=== PATIENT | female | born 1965 | race Caucasian/White ===

== ENCOUNTER 2018-07-09 05:45 | Inpatient (IN) | payer OTHER ==
[~2018-07-09 05:45] MED LIST: Buffered Lidocaine 0.9% SYRIN* 5 ML/SYR SYRINGE INTRADERM ONE
[2018-07-09] MEDS ORDERED: Famotidine IV* 10 MG/ML 2 ML (20 mg) IV ONE (06:00)
[2018-07-09] MEDS ORDERED: Famotidine IV* 10 MG/ML 2 ML (20 mg) ONE (06:04)
[2018-07-09] MEDS ORDERED: ceFAZolin 2 GM PREMIX in ORs 2 GM/50 ML BAG IVPB ONE (06:04)
[2018-07-09] MEDS ORDERED: Rocuronium* 10 MG/ML VIAL ONE (07:08)
[2018-07-09] MEDS ORDERED: fentaNYL* 50 MCG/ML 5 ML VIAL (250 MCG VIAL) ONE (07:08)
[2018-07-09] MEDS ORDERED: Midazolam* 1 MG/ML 2 ML VIAL (2 MG) ONE (07:08)
[2018-07-09] MEDS ORDERED: HYDROmorphone INJ1* 1 MG/ML SYRINGE ONE ×2 (08:18→08:33)
[2018-07-09] MEDS ORDERED: Lidocaine 2% PF * 5 ML VIAL ONE (08:43)
[2018-07-09] MEDS ORDERED: Succinylcholine* 20 MG/ML 10 ML VIAL ONE (08:43)
[2018-07-09] MEDS ORDERED: Propofol* 10 MG/ML 20 ML BTL IV PUSH ONE (08:43)
[2018-07-09] MEDS ORDERED: Metoclopramide IV* 5 MG/ML 2 ML VIAL ONE (08:47)
[2018-07-09] MEDS ORDERED: Acetaminophen IV 1GM/100ML * 1,000 MG/100 ML VIAL IVPB ONE (08:50)
[2018-07-09] MEDS ORDERED: HYDROmorphone INJ1* 1 MG/ML SYRINGE IV PRN (08:50)
[2018-07-09] MEDS ORDERED: oxyCODONE TAB* 5 MG TAB PO PRN (08:50)
[2018-07-09] MEDS ORDERED: DiMENhydriNATE IV* 50 MG/ML VIAL IV PUSH PRN (08:50)
[2018-07-09] MEDS ORDERED: Naloxone* 0.4 MG/ML 1 ML VIAL IV PRN (08:50)
[2018-07-09] MEDS ORDERED: PROCHLORPERAZINE INJ 5 MG/ML 2 ML VIAL IV PRN (08:50)
[2018-07-09] MEDS ORDERED: fentaNYL* 50 MCG/ML 2 ML VIAL (100 MCG VIAL) IV PRN (08:50)
[2018-07-09] MEDS ORDERED: Ketorolac INJ* 30 MG/ML 1 ML VIAL IV PRN (08:50)
[2018-07-09] MEDS ORDERED: Bupivacaine 0.5% W/EPI SDV* 30 ML VIAL ONE (09:07)
[2018-07-09] MEDS ORDERED: Ondansetron INJ* 2 MG/ML VIAL ONE (10:43)
[2018-07-09] MEDS ORDERED: Ketorolac INJ* 30 MG/ML 1 ML VIAL ONE (11:02)
[2018-07-09] MEDS ORDERED: Acetaminophen IV 1GM/100ML * 100 ML ONE (11:02)
[2018-07-09] MEDS ORDERED: Ondansetron ODT TAB* 4 MG PO PRN (11:05)
[2018-07-09] MEDS ORDERED: diPHENhydraMINE PO* 25 MG PO PRN (11:05)
[2018-07-09] MEDS ORDERED: Bisacodyl SUPP* 10 MG SUPP PR PRN (11:05)
[2018-07-09] MEDS ORDERED: Polyethylene Glycol 3350* 17 GM PACKET PO PRN (11:05)
[2018-07-09] MEDS ORDERED: oxyCODONE/Acetamin 5/325 MG* TAB PO PRN (11:05)
[2018-07-09] MEDS ORDERED: Morphine VIAL* 4 MG/ML VIAL (1 ml vial) IV PRN (11:05)
[2018-07-09] MEDS ORDERED: Magnesium Hydroxide LIQ* 30 ML UDC PO PRN (11:05)
[2018-07-09] MEDS ORDERED: diPHENhydraMINE IV* 50 MG/ML 1 ml VIAL (BENADRYL) IV PRN (11:05)
[2018-07-09] MEDS ORDERED: Cyclobenzaprine TAB* 10 MG PO PRN (11:05)
[2018-07-09] MEDS ORDERED: Ondansetron INJ* 2 MG/ML VIAL IV PRN (11:05)
[2018-07-09] MEDS ORDERED: oxyCODONE TAB* 5 MG TAB ONE (11:43)
[2018-07-09] MEDS ORDERED: Dextrose 50% Syringe 50 ML* 25 GM/50 ML SYRINGE IV PUSH PRN (14:11)
[2018-07-09] MEDS: traMADol TAB* 50 MG PO PRN ×2 (15:02→23:35)
[2018-07-09] MEDS: ceFAZolin 1 GM ADVAN(*) 1 GM in NS 0.9% 50 ML* 50 ML IVPB SCH ×2 (15:10→23:32)
[2018-07-09] MEDS: oxyCODONE TAB* 5 MG TAB PO PRN (17:44)
[2018-07-09] MEDS: Insulin LISPRO* 1 UNITS UNIT SUBCUT SCH (17:44)
--- NOTE | 2018-07-09 19:59 | CONS ---
CC: ALAN Hodgson; Dr. Carlisle * CONSULTATION REPORT: DATE OF CONSULT: 07/09/18 PRIMARY CARE PROVIDER: ALAN Hodgson, from [place]. ATTENDING PHYSICIAN WHILE IN THE HOSPITAL: Kemi Arriola DO (report dictated by Adrian Fields NP). REASON FOR MEDICAL CONSULT: Evaluation and medical management of comorbid medical conditions. HISTORY OF PRESENT ILLNESS: Ms. Fritz is a 52-year-old female patient, who carries a history of CAD, hypertension, hyperlipidemia, GERD, peptic ulcer disease, history of OH, history of diabetes, osteoarthritis, and hypothyroidism. She presented to Dr. Carlisle's service with complaints of left knee pain. She had failed conservative therapy and had undergone a left total knee replacement today. The patient was evaluated in the postoperative setting. She says that she is feeling well. She does have some pain in her left knee. She denies having any chest pain. Denies having any shortness of breath. She denies any abdominal pain or any nausea. She states that otherwise , she is feeling well. She denies having any abdominal discomfort or any nausea. Because of her medical complexity, we were asked to evaluate in consult. PAST MEDICAL HISTORY: Significant for: 1. CAD. 2. Hypertension. 3. Hyperlipidemia. 4. GERD. 5. Peptic ulcer disease. 6. History of OH. 7. Diabetes. 8. Arthritis. 9. Hypothyroidism. PAST SURGICAL HISTORY: She has had a left total knee arthroplasty done today. She has had a total abdominal hysterectomy with bilateral salpingo- oophorectomy. She has had heart catheterization with no stent. HOME MEDICATIONS: Include: 1. Calcium carbonate 1 tablet p.o. daily. 2. Metformin 500 mg p.o. twice a day. 3. Vitamin E 400 units p.o. daily. 4. Vitamin B 1 tablet p.o. at bedtime. 5. Plavix 75 mg p.o. daily. 6. Vitamin D3 2000 units p.o. daily. 7. Diltiazem CD 120 mg p.o. b.i.d. 8. Aspirin 81 mg daily. 9. Zocor 20 mg p.o. daily. 10. Synthroid 75 mcg p.o. daily. 11. Advil 200 mg every 4 hours as needed. 12. Nitro 0.4 mg sublingual q.5 minutes p.r.n. chest pain. ALLERGIES TO MEDICATIONS: Include TAPE, AMLODIPINE, LATEX, LISINOPRIL, METRONIDAZOLE, NIACIN. FAMILY HISTORY: Her mother had high blood pressure and a stroke. Father had a history of diabetes, hypertension, and cancer. SOCIAL HISTORY: She does not smoke. She does not drink. Surrogate decision maker is her . REVIEW OF SYSTEMS: There is no documented fever. She denies having any significant weight change. There is no double vision. She denies having any ear discharge. There is no rhinorrhea, no sore throat, no thyroid enlargement. She denied having any chest pain. There is no orthopnea. There is no nocturnal dyspnea. There was no abdominal pain, no nausea, no vomiting. No dysuria, no frequency. No seizure, no loss of consciousness. No pruritus and no skin ulcerations. Review of 14 systems was completed, all others negative. PHYSICAL EXAM: Blood pressure was noted to be 122/52 with a pulse of 69, respirations 18, O2 sat 99%, temperature 98.2. General: At this time, Ms. Fritz is a 52-year-old female patient. She is sitting in the postoperative bed. She does not appear to be in any acute distress. She appears to be well nourished and well developed. HEENT: Head: Atraumatic and normocephalic. Eyes : EOMs are intact. Sclerae anicteric and not pale. Throat: Oral mucosa appears to be moist. No oropharyngeal erythema. Neck was supple. Heart: Sounds S1, S2. She had a regular rate and rhythm. There were no murmurs, rubs , or gallops. Lungs were clear to auscultation bilaterally. There were no wheezes, rales, or rhonchi. Abdomen was soft. It was flat, nontender. Bowel sounds were present in all 4 quadrants. Extremities: Pulses were 2+ throughout. She is moving the upper extremities with 5/5 strength. The left lower extremity is wrapped in Daryl bandage, but distal CSM checks are intact. This is the operative leg, so she has difficult range of motion of this leg. Neurologically, she is awake, she is alert, she is oriented x3. Her tongue is midline. Biostatistician were equal. She had no gross focal deficits. Skin: Intact with exception she has an incision to the left knee, which is covered with an Daryl dressing, clean, dry, and intact. DIAGNOSTIC STUDIES/LAB DATA: Preop WBC of 8.6, RBC of 4.85, hemoglobin of 14.9 , hematocrit of 42, platelet count of 207,000. The INR was 0.90. The sodium was 141, potassium 4.2, chloride of 105, bicarb 30, BUN 17, creatinine of 0.96, glucose was 98. She had a preop chest x-ray: No active cardiopulmonary disease. She had a cath 3 years ago, which showed mild atherosclerotic coronary artery disease with changes as noted from 2000. Coronary artery spasm should be a major consideration in this patient. She had an EKG preop showing a normal sinus rhythm, rate of [address] elevations or T-wave inversions noted. She had an echo in March, which showed an EF of 55%. Old medical records were reviewed. ASSESSMENT AND PLAN: Ms. Fritz is a 52-year-old female patient coming into the orthopedic service today for an elective left total knee. We were asked to evaluate in consult. My recommendations at this point are: 1. Status post left total knee. Defer the management to Dr. Carlisle and his team. 2. Coronary artery disease. I would recommend getting her back on her statin, aspirin therapy and her Plavix therapy. She is also on diltiazem. Given the history of coronary artery spasm, I would get this started as soon as possible pressure permitting, which it looks like postoperatively actually her pressures have been running 150, 140s, so I am going to go ahead and continue this tonight as she takes at home. 3. Hypertension. Continue meds as prescribed. 4. Hyperlipidemia. Continue statin therapy. 5. Gastroesophageal reflux disease with a history of peptic ulcer disease. Continue her current meds. 6. Diabetes. Again, she is on a low dose metformin, but I am going to put her on a sliding scale while she is here recovering. 7. Arthritis. Follow with her PCP. 8. Hypothyroidism. Continue her Synthroid. 9. DVT prophylaxis: Defer to the primary team. 10. Code status: She is a full code. 11. Fluids, electrolytes, and nutrition: I would recommend a consistent carb diet. TIME SPENT: Time spent on the consult was 60 minutes, greater than half the time was spent [id number] with the patient obtaining my history and physical, other half time was spent going over the plan of care with the patient and implementing plan of care. I did discuss the plan of care with my attending, Dr. Arriola; she is in agreement. ADRIAN FIELDS NP [id number]/[facility] #: [id number] MAE
[2018-07-09] MEDS ORDERED: metFORMIN* 500 MG TAB PO SCH (21:00)
[2018-07-09] MEDS: Magnesium Hydroxide LIQ* 30 ML UDC PO SCH (21:04)
[2018-07-09] MEDS: Acetaminophen TAB* 325 MG PO SCH (21:05)
[2018-07-09] MEDS: Atorvastatin* 10 MG TAB PO SCH (21:05)
[2018-07-09] MEDS: Docusate CAP* 100 MG PO SCH (21:05)
[2018-07-09] MEDS: Aspirin EC TAB* 81 MG TAB.EC PO SCH (21:05)
[2018-07-09] MEDS: [UNRECOGNIZED DRUG - OTHER] PO SCH (21:06)
[2018-07-09] MEDS: DILTIAZEM PO SCH (21:06)
--- NOTE | 2018-07-10 01:57 | OP ---
DATE OF OPERATION: 07/09/18 - ROOM #347 DATE OF : 65 SURGEON: Ever Carlisle MD ASSISTANTS: ALAN Gordon; Andressa Taylor. A physician melter assistant was required for the length of the procedure for assistance with the patient positioning, retraction and closure. ANESTHESIOLOGIST: Dr. Bell. ANESTHESIA: General anesthesia, 38 cc of 0.5% Marcaine with epinephrine. PRE-OP DIAGNOSIS: Left knee osteoarthritis and pain. POST-OP DIAGNOSIS: Left knee osteoarthritis and pain. OPERATIVE PROCEDURE: Left total knee arthroplasty. ANTIBIOTICS: Ancef 2 g IV. IV FLUIDS: 1100 cc crystalloid. URINE OUTPUT: Not recorded by me. ESTIMATED BLOOD LOSS: 150 cc. TOURNIQUET TIME: 120 minutes at 300 mmHg. UMAH-MH-WWXD TIME: 133 minutes. SPECIMEN: Bone cuts from the surgery were sent to pathology. IMPLANTS: Interview[employer] total knee arthroplasty system with a femur size 4 narrow, cruciate retaining, cemented. Tibia size 3 cemented, fixed bearing, patella, medialized dome, 32 mm cemented. A tibial insert was size 6 mm. I also used Redd Palacos cement. COMPLICATIONS: None. INDICATIONS FOR PROCEDURE: The patient is a 52-year-old woman with a long history of pain and osteoarthritis of the left knee. She responded insufficiently to nonoperative management and opted for surgery. Given the patient's young age and cardiac history, I was very detailed in making sure the patient understood the risks of surgery and I made sure that we had exhausted all nonoperative measures. We discussed risks and potential complications of surgery. DESCRIPTION OF PROCEDURE: The patient signed a written consent in preoperative holding. Operative extremity was marked in preoperative holding. The patient was taken back to the operating room and placed supine on the operating table. It should be noted that the patient stopped her aspirin 7 days preoperatively and her Plavix 5 days preoperatively. The patient underwent general anesthesia. Tourniquet was placed around the left proximal thigh. A lateral post was placed on the bed about the level of the lateral aspect of the distal thigh. The left leg was prepped with chlorhexidine and then ChloraPrep. Left lower extremity was draped. The [facility] knee positioner was put into place. I used Ioban to complete the draping covering all skin. A surgical time-out was performed. Esmarch was applied and the tourniquet was elevated to 300 mmHg. Anterior midline longitudinal skin incision from 4 fingerbreadths proximal to the proximal pole of patella to the end of the distal aspect of the tibial tubercle. I exchanged knives and dissected down to the extensor mechanism. I made a medial parapatellar arthrotomy. I encountered tricompartmental degenerative changes with significant loss of articular cartilage and osteophytes. I completed my cut down through the anterior horn of the medial meniscus. I fully extended the knee and lifted the capsule off the anterior aspect of the knee with Bovie electrocautery. I removed much of the sac from the undersurface of the patellar tendon and everted the patella and flexed the knee up to 90 degrees. I removed the ACL ligament. I removed some osteophytes with a rongeur. I drilled the femur and then placed the distal femoral cutting guide. I removed 9 mm at 5 degrees of valgus. I next applied the distal femoral sizing guide. I sized the distal femur to a 4. I made my 4 bone cuts. I removed all instrumentation. I moved to the tibia. I marked external anatomy. The medial side was the low, more worn side. I made a cut with 7 degrees of posterior slope. I removed 3 mm off the low side, which was approximately 12 mm off the high side. I liked my bone cut. The bone cut was on the small side, but there seemed enough gap within the knee. I placed lamina spreaders and removed all meniscus. I removed some posterior femoral osteophytes. Irrigation. I placed a dog-bone bone spacer of 6 mm thickness. Flexion/extension gaps were equal. I placed the femoral trial and drilled the femur. Before that, I had rasped the anterior chamfer cut. I next sized the tibia to a size 3. I prepared the tibia. I next moved to the patella. It was first 22 mm in deep. I removed enough bone using freehand technique so that it was 13 mm in depth. I sized it to a size 32 and drilled it. I irrigated knee. I plugged femoral canal. I mixed cement for 45 seconds, Redd Palacos. I changed gloves. Applied cement and components, first tibia, then femur. I placed a trial 6 mm insert and then I placed the patellar component. We waited for the cement to harden. We then irrigated. There was no extra cement. We next trialed the knee with a 6 mm trial. The patient had excellent range of motion, 0 to at least 110 degrees of flexion, with flexion limited by thigh-calf contact. Excellent valgus varus stability. We next irrigated and placed the final 6 mm insert. Irrigation. Closure of the arthrotomy with Ethibond 0, then Vicryl 0. Stitches, [id number]. It was with the knee in 30 degrees of flexion. We then irrigated and closed the deep subcutaneous and superficial subcutaneous layers with Vicryl 2-0 suture buried deep stitches. Closure of the skin with vinnie. We had let the tourniquet up at 120 minutes while we were at the final stage of closing. We had applied 38 cc of local anesthetic about the joint capsule prior to closure. Xeroform, 4x4's, ABD's, sterile Webril. Daryl bandage from foot to proximal thigh. Cooling unit. DISPOSITION: The patient was awakened and brought to the PACU. She will be admitted postoperatively. The patient will have x-rays obtained in the PACU. She will start physical therapy this afternoon. She will have IV antibiotics for 48 hours rather than 24 hours because she is a diabetic and is obese, so is at increased risk of infection. Pain control. Her Plavix and aspirin will start tomorrow morning as will her Eliquis 2.5 mg p.o. b.i.d. x4 weeks. I will see the patient 14 to 17 days postoperatively in clinic. [id number]/[facility] #: [id number] MAE
[2018-07-10] MEDS: Acetaminophen TAB* 325 MG PO SCH ×3 (04:05→19:32)
[2018-07-10] MEDS: oxyCODONE TAB* 5 MG TAB PO PRN ×5 (04:08→23:53)
[2018-07-10] MEDS: Levothyroxine TAB* 75 MCG TAB PO SCH (06:13)
[2018-07-10 06:31] LABS: Hematocrit 32 % (35-47); Mean Platelet Volume 9.3 fL (7.4-10.4); Platelet Count 158 10^3/ul (150-450)
[2018-07-10 06:49] LABS: EGFR Non-African American 72.2 (>60)
[2018-07-10] MEDS: Insulin LISPRO* 1 UNITS UNIT SUBCUT SCH ×3 (08:13→17:52)
[2018-07-10] MEDS: ceFAZolin 1 GM ADVAN(*) 1 GM in NS 0.9% 50 ML* 50 ML IVPB SCH ×3 (08:13→23:54)
[2018-07-10] MEDS: Clopidogrel TAB* 75 MG PO SCH (09:50)
[2018-07-10] MEDS: Apixaban* 2.5 MG TAB PO SCH ×2 (09:50→19:33)
[2018-07-10] MEDS: traMADol TAB* 50 MG PO PRN ×3 (09:50→22:22)
[2018-07-10] MEDS: Docusate CAP* 100 MG PO SCH ×2 (09:50→19:42)
[2018-07-10] MEDS: Magnesium Hydroxide LIQ* 30 ML UDC PO SCH ×2 (09:51→19:42)
[2018-07-10] MEDS: DILTIAZEM PO SCH (10:02)
[2018-07-10] MEDS: [UNRECOGNIZED DRUG - OTHER] PO SCH (10:02)
--- NOTE | 2018-07-10 12:22 | PN ---
Progress Note - Progress Note Date of Service: 07/10/18 SOAP: Subjective: []Patient was seen and examined OOB in chair today. Her left knee pain is tolerable and she has been up to walk to the bathroom with assistance without difficulty. She denies any chest pain, shortness of breath, fever, chills, nausea, dizziness or leg numbness. Objective: []General: Well appearing, NAD LLE: Left knee dressing is CDI without surrounding erythema. Cryo cuff is in use. Thigh is soft, DF/PF intact, Dp2+, capillary refill less than two seconds distally, sensation intact to light touch distally. Calves supple and nontender without erythema, edema or palpable cords Assessment: []POD 1 sp left total knee arthroplasty Plan: []WBAT PT/OT Eliquis 2.5 mg po bid for 4 weeks, also home dose of asa and plavix all okay to start today 48 hours IV abx post op due to increased risk of infection with hx dm2 and obesity F/U Dr Carlisle 14-17 days post op Encourage IS use, monitor O2 and HR Vital Signs Temp 98.6 F 07/10/18 11:33 Pulse 102 07/10/18 11:33 Resp 16 07/10/18 11:33 BP 126/67 07/10/18 11:33 Pulse Ox 92 07/10/18 11:33 Intake & Output 07/09/18 07/10/18 07/10/18 18:59 06:59 18:59 Intake Total 1300 1620 240 Output Total 525 950 100 Balance 775 670 140 Intake: IV Fluids 1300 980 LR 1300 980 IVPB 50 ABX - CEFAZOLIN 50 Oral 0 590 240 Output: Urine 100 [place] 375 950 Estimated Blood Loss 150 Laboratory Last Values Hgb 11.0 g/dl (12.0-16.0) L 07/10/18 06:14 Hct 32 % (35-47) L 07/10/18 06:14 Plt Count 158 10^3/ul (150-450) 07/10/18 06:14 MPV 9.3 fL (7.4-10.4) 07/10/18 06:14 Sodium 140 mmol/L (135-145) 07/10/18 06:14 Potassium 3.7 mmol/L (3.5-5.0) 07/10/18 06:14 Chloride 105 mmol/L (101-111) 07/10/18 06:14 Carbon Dioxide 30 mmol/L (22-32) 07/10/18 06:14 Anion Gap 5 mmol/L (2-11) 07/10/18 06:14 BUN 12 mg/dL (6-24) 07/10/18 06:14 Creatinine 0.83 mg/dL (0.51-0.95) 07/10/18 06:14 Est GFR ( Amer) 87.4 (>60) 07/10/18 06:14 Est GFR (Non-Af Amer) 72.2 (>60) 07/10/18 06:14 BUN/Creatinine Ratio 14.5 (8-20) 07/10/18 06:14 Glucose 124 mg/dL (70-100) H 07/10/18 06:14 POC Glucose (mg/dL) 191 mg/dL (70-100) H 07/10/18 11:39 Calcium 7.9 mg/dL (8.6-10.3) L 07/10/18 06:14 <Lisa Minaya - Last Filed: 07/10/18 12:23> - Progress Note SOAP: Subjective: - Patient has been somewhat sad according to her family and staff. Objective: LLE: - inc c/d/i - NVID Assessment: POD 2 L TKA Plan: - Per above <Ever Carlisle - Last Filed: 07/11/18 21:05>
--- NOTE | 2018-07-10 13:41 | PN ---
Subjective Date of Service: 07/10/18 Interval History: Pt seen and examined. Meds and labs reviewed. CC: 06/11 post- op pain; mentioned she received some pain meds ~1 hr ago. ROS: Denied LEWIS/dizziness, F/C, N/V, CP, SOB, increased cough, sputum production , abd pain, diarrhea, constipation, dysuria, myalgias, arthralgias, throat pain , and new skin lesions. The rest of the 14 point ROS are unremarkable. PHYSICAL EXAM: GEN APPEARANCE: Awake, not in acute distress HEENT: NC/AT, PERRLA, moist oral mucosa, (-) throat erythema NECK: Soft, supple, (-) cervical LAD, (-)JVD HEART: S1S2 WNL, RRR, No MRG CHEST: CTA, BL, GAE, No W/R/R ABD: Soft, ND/NT, NABS 4x Q EXT: No C/C/LLE (+) knee cdi SKIN: Warm to touch PSYCH: No active psychosis, hallucinations, depression, SI/HI Objective Active Medications: Acetaminophen (Tylenol Tab*) 975 mg PO Q8H [facility] Last Admin: 07/10/18 11:39 Dose: 975 mg Apixaban (Eliquis) 2.5 mg PO BID [facility] Last Admin: 07/10/18 09:50 Dose: 2.5 mg Aspirin (Aspirin Ec Tab*) 81 mg PO 1999 [facility] Last Admin: 07/09/18 21:05 Dose: 81 mg Atorvastatin Calcium (Lipitor*) 10 mg PO 1999 [facility] Last Admin: 07/09/18 21:05 Dose: 10 mg Bisacodyl (Dulcolax Supp*) 10 mg AR DAILY PRN PRN Reason: constipation Clopidogrel Bisulfate (Plavix Tab*) 75 mg PO QAM [facility] Last Admin: 07/10/18 09:50 Dose: 75 mg Cyclobenzaprine HCl (Flexeril Tab*) 10 mg PO TID PRN PRN Reason: SPASMS Dextrose (D50w Syringe 50 Ml*) 12.5 gm IV PUSH .FOR FS < 60 - SS PRN PRN Reason: FS < 60 Diltiazem HCl (Tiazac(Nf)) 120 mg PO BID [facility] Last Admin: 07/10/18 10:02 Dose: Not Given Diphenhydramine HCl (Benadryl Iv*) 25 mg IV Q6H PRN PRN Reason: itching Diphenhydramine HCl (Benadryl Po*) 25 mg PO Q6H PRN PRN Reason: INSOMNIA Docusate Sodium (Colace Cap*) 100 mg PO BID [facility] Last Admin: 07/10/18 09:50 Dose: 100 mg Lactated Ringer's (Lactated Ringers 1000 Ml Bag*) 1,000 mls @ 100 mls/hr IV PER RATE [facility] Last Admin: 07/09/18 22:09 Dose: 100 mls/hr Cefazolin Sodium 1 gm/ Sodium (Chloride) 50 mls @ 200 mls/hr IVPB Q8H [facility] Last Admin: 07/10/18 08:13 Dose: 200 mls/hr Insulin Human Lispro (Humalog*) 0 units SUBCUT [facility]; Protocol Last Admin: 07/10/18 12:46 Dose: 3 units Lactulose (Lactulose*) 30 ml PO Q6H PRN PRN Reason: constipation Levothyroxine Sodium (Synthroid Tab*) 75 mcg PO 0600 [facility] Last Admin: 07/10/18 06:13 Dose: 75 mcg Magnesium Hydroxide (Milk Of Magnesia Liq*) 30 ml PO BID [facility] Last Admin: 07/10/18 09:51 Dose: 30 ml Magnesium Hydroxide (Milk Of Magnesia Liq*) 30 ml PO Q6H PRN PRN Reason: constipation Morphine Sulfate (Morphine Vial*) 2 mg IV Q2H PRN PRN Reason: PAIN - SEVERE Ondansetron HCl (Zofran Inj*) 4 mg IV Q6H PRN PRN Reason: nausea Ondansetron HCl (Zofran Odt Tab*) 4 mg PO Q6H PRN PRN Reason: NAUSEA Oxycodone HCl (Roxycodone Tab*) 10 mg PO Q4H PRN PRN Reason: moderate to severe pain Last Admin: 07/10/18 12:46 Dose: 10 mg Oxycodone/Acetaminophen (Percocet 5/325 Tab*) 1 tab PO Q3H PRN PRN Reason: PAIN - MODERATE Polyethylene Glycol/Electrolytes (Miralax*) 17 gm PO DAILY PRN PRN Reason: Constipation Tramadol HCl (Ultram*) 50 mg PO Q6H PRN PRN Reason: PAIN Last Admin: 07/10/18 09:50 Dose: 50 mg Vital Signs - 8 hr 07/10/18 07/10/18 07/10/18 06:38 07:44 08:00 Temperature 98.4 F Pulse Rate 93 Respiratory 18 14 14 Rate Blood Pressure 107/44 (mmHg) O2 Sat by Pulse 94 Oximetry 07/10/18 07/10/18 07/10/18 08:13 09:50 11:33 Temperature 98.6 F Pulse Rate 102 Respiratory 14 16 16 Rate Blood Pressure 126/67 (mmHg) O2 Sat by Pulse 92 Oximetry 07/10/18 12:46 Temperature Pulse Rate Respiratory 16 Rate Blood Pressure (mmHg) O2 Sat by Pulse Oximetry Oxygen Devices in Use Now: None Result Diagrams: 07/10/18 06:14 07/10/18 06:14 Assess/Plan/Problems-Billing Assessment: - Patient Problems (1) Total knee replacement status Current Visit: Yes Status: Acute Code(s): Z96.659 - PRESENCE OF UNSPECIFIED ARTIFICIAL KNEE JOINT SNOMED Code(s): 1596325183288 Comment: #S/P TKR: -POD #1 -Encouraged pt to ask for PRN pain meds as she has plenty if she feels she needs more pain meds to be comfortable -Continue PT/OT -Defer with ortho (2) CAD (coronary artery disease) Current Visit: Yes Status: Acute Code(s): I25.10 - ATHSCL HEART DISEASE OF [place] CORONARY ARTERY W/O ANG PCTRS SNOMED Code(s): 70237466 Comment: -Continue DAPT, statins, and Diltiazem (3) Hypothyroidism Current Visit: Yes Status: Acute Code(s): E03.9 - HYPOTHYROIDISM, UNSPECIFIED SNOMED Code(s): 18682816 Comment: -Continue Levothyroxine -Will check TSH and FT4 in AM (4) DVT prophylaxis Current Visit: Yes Status: Acute Code(s): HLO7186 - SNOMED Code(s): 254010403 Comment: -On Apixaban Status and Disposition: -Defer with ortho
[2018-07-10] MEDS: Aspirin EC TAB* 81 MG TAB.EC PO SCH (19:32)
[2018-07-10] MEDS: Atorvastatin* 10 MG TAB PO SCH (19:32)
[2018-07-10] MEDS: Diltiazem CD CAP* 120 MG PO SCH (19:33)
[2018-07-10] MEDS ORDERED: Diltiazem CD CAP* 120 MG PO SCH (21:00)
[2018-07-11] MEDS: Acetaminophen TAB* 325 MG PO SCH ×3 (04:07→20:53)
[2018-07-11] MEDS: oxyCODONE TAB* 5 MG TAB PO PRN ×3 (05:41→13:53)
[2018-07-11] MEDS: Levothyroxine TAB* 75 MCG TAB PO SCH (05:41)
[2018-07-11 06:47] LABS: ABS Basophils 0 10^3/ul (0-0.2); ABS Eosinophils 0.3 10^3/ul (0-0.6); ABS Lymphocytes 1.3 10^3/ul (1.0-4.8); ABS Monocytes 0.8 10^3/ul (0-0.8); ABS Neutrophils 8.2 10^3/ul (1.5-7.7); ABS Nucleated RBC 0 10^3/ul; Eosinophil % 3.1 % (0-6); Hematocrit 29 % (35-47); Hemoglobin 10.2 g/dl (12.0-16.0); Lymphocyte % 11.9 % (25-47); Mean Corpuscular HGB Conc 35 g/dl (31-36); Mean Corpuscular Hemoglobin 31 pg (27-31); Mean Corpuscular Volume 90 fL (80-97); Mean Platelet Volume 9.1 fL (7.4-10.4); Nucleated Red Blood Cells % 0; Platelet Count 137 10^3/ul (150-450); Red Blood Count 3.25 10^6/ul (4.00-5.40); Red Cell Distribution Width 13 % (10.5-15); White Blood Count 10.6 10^3/ul (3.5-10.8)
[2018-07-11 07:05] LABS: EGFR Non-African American 74.3 (>60)
[2018-07-11] MEDS: ceFAZolin 1 GM ADVAN(*) 1 GM in NS 0.9% 50 ML* 50 ML IVPB SCH ×2 (07:38→16:20)
[2018-07-11] MEDS: traMADol TAB* 50 MG PO PRN (07:38)
[2018-07-11] MEDS ORDERED: Sodium Phosphate INJ* 10 MMOLE in NS 0.9% 250 ML* 250 ML IVPB ONE (08:50)
[2018-07-11] MEDS: Apixaban* 2.5 MG TAB PO SCH ×2 (08:52→20:53)
[2018-07-11] MEDS: Clopidogrel TAB* 75 MG PO SCH (08:52)
[2018-07-11] MEDS: Diltiazem CD CAP* 120 MG PO SCH ×2 (08:52→20:53)
[2018-07-11] MEDS: Insulin LISPRO* 1 UNITS UNIT SUBCUT SCH ×3 (08:53→17:57)
[2018-07-11] MEDS: Docusate CAP* 100 MG PO SCH ×2 (08:53→20:53)
[2018-07-11] MEDS: Magnesium Hydroxide LIQ* 30 ML UDC PO SCH ×2 (08:56→20:57)
--- NOTE | 2018-07-11 11:09 | PN ---
Progress Note - Progress Note Date of Service: 07/11/18 SOAP: Subjective: []Patient seen at [facility], family present. She is making slow improvement with PT, had difficulty with stairs yesterday but reportedly did master them this am. She still does not feel ready for discharge home. Objective: [] Vital Signs Temp 98.8 F 07/11/18 07:31 Pulse 102 07/11/18 07:31 Resp 16 07/11/18 09:48 BP 104/45 07/11/18 07:31 Pulse Ox 93 07/11/18 07:31 Intake & Output 07/10/18 07/11/18 07/11/18 18:59 06:59 18:59 Intake Total 1431 1170 120 Output Total 700 1000 Balance 731 170 120 Intake: IV Fluids 701 LR 701 IVPB 50 ABX - CEFAZOLIN 50 Oral 730 1120 120 Output: Urine 700 1000 Other: # Bowel Movements 1 Estimated Stool Amount Medium Laboratory Results - last 24 hr 07/10/18 07/10/18 07/11/18 11:39 16:15 06:22 WBC 10.6 RBC 3.25 L Hgb 10.2 L Hct 29 L MCV 90 MCH 31 MCHC 35 RDW 13 Plt Count 137 L MPV 9.1 Neut % (Auto) 77.0 Lymph % (Auto) 11.9 L Motley % (Auto) 7.7 H Eos % (Auto) 3.1 Baso % (Auto) 0.3 Absolute Neuts (auto) 8.2 H Absolute Lymphs (auto) 1.3 Absolute Monos (auto) 0.8 Absolute Eos (auto) 0.3 Absolute Basos (auto) 0 Absolute Nucleated RBC 0 Nucleated RBC % 0 Sodium Potassium Chloride Carbon Dioxide Anion Gap BUN Creatinine Est GFR ( Amer) Est GFR (Non-Af Amer) BUN/Creatinine Ratio Glucose POC Glucose (mg/dL) 191 H 179 H Calcium Phosphorus Magnesium Total Bilirubin AST ALT Alkaline Phosphatase Total Protein Albumin Globulin Albumin/Globulin Ratio TSH Free T4 07/11/18 07/11/18 06:22 07:30 WBC RBC Hgb Hct MCV MCH MCHC RDW Plt Count MPV Neut % (Auto) Lymph % (Auto) Motley % (Auto) Eos % (Auto) Baso % (Auto) Absolute Neuts (auto) Absolute Lymphs (auto) Absolute Monos (auto) Absolute Eos (auto) Absolute Basos (auto) Absolute Nucleated RBC Nucleated RBC % Sodium 137 Potassium 3.9 Chloride 103 Carbon Dioxide 30 Anion Gap 4 BUN 11 Creatinine 0.81 Est GFR ( Amer) 89.8 Est GFR (Non-Af Amer) 74.3 BUN/Creatinine Ratio 13.6 Glucose 154 H POC Glucose (mg/dL) 163 H Calcium 7.8 L Phosphorus 2.4 L Magnesium 2.5 Total Bilirubin 0.50 AST 17 ALT 12 Alkaline Phosphatase 48 Total Protein 5.2 L Albumin 3.0 L Globulin 2.2 Albumin/Globulin Ratio 1.4 TSH 0.73 Free T4 1.90 H Left knee dressings changed incision is benign/ vinnie intact small hematoma noted distal to incision on anterior lower leg calf NT and soft +DF/PF left ankle sensation intact distally 2+ DP pulse Assessment: []s/p Left total knee arthroplasty POD #2 Plan: []PT/OT WBAT LLE Eliquis 2.5mg BID, continue 81 mg ASA and Plavix as per pre op Hopefully with be ready for discharge home tomorrow with outpatient PT
[2018-07-11] MEDS ORDERED: Saline NASAL SPRAY 0.65%* BTL BOTH NARES PRN (12:05)
--- NOTE | 2018-07-11 17:10 | PN ---
Subjective Date of Service: 07/11/18 Interval History: Pt seen and examined. Meds and labs reviewed. CC: Nasal dryness ROS: Denied LEWIS/dizziness, F/C, N/V, CP, SOB, increased cough, sputum production , abd pain, diarrhea, constipation, dysuria, myalgias, arthralgias, throat pain , and new skin lesions. The rest of the 14 point ROS are unremarkable. PHYSICAL EXAM: GEN APPEARANCE: Awake, not in acute distress HEENT: NC/AT, PERRLA, moist oral mucosa, (-) throat erythema NECK: Soft, supple, (-) cervical LAD, (-)JVD HEART: S1S2 WNL, RRR, No MRG CHEST: CTA, BL, GAE, No W/R/R ABD: Soft, ND/NT, NABS 4x Q EXT: No C/C/LLE (+) knee cdi SKIN: Warm to touch PSYCH: No active psychosis, hallucinations, depression, SI/HI Objective Active Medications: Acetaminophen (Tylenol Tab*) 975 mg PO Q8H [facility] Last Admin: 07/11/18 11:38 Dose: 975 mg Apixaban (Eliquis) 2.5 mg PO BID [facility] Last Admin: 07/11/18 08:52 Dose: 2.5 mg Aspirin (Aspirin Ec Tab*) 81 mg PO 1999 [facility] Last Admin: 07/10/18 19:32 Dose: 81 mg Atorvastatin Calcium (Lipitor*) 10 mg PO 1999 [facility] Last Admin: 07/10/18 19:32 Dose: 10 mg Bisacodyl (Dulcolax Supp*) 10 mg CA DAILY PRN PRN Reason: constipation Clopidogrel Bisulfate (Plavix Tab*) 75 mg PO QAM [facility] Last Admin: 07/11/18 08:52 Dose: 75 mg Cyclobenzaprine HCl (Flexeril Tab*) 10 mg PO TID PRN PRN Reason: SPASMS Dextrose (D50w Syringe 50 Ml*) 12.5 gm IV PUSH .FOR FS < 60 - SS PRN PRN Reason: FS < 60 Diltiazem HCl (Cardizem Cd Cap*) 120 mg PO BID [facility] Last Admin: 07/11/18 08:52 Dose: 120 mg Diphenhydramine HCl (Benadryl Iv*) 25 mg IV Q6H PRN PRN Reason: itching Diphenhydramine HCl (Benadryl Po*) 25 mg PO Q6H PRN PRN Reason: INSOMNIA Docusate Sodium (Colace Cap*) 100 mg PO BID [facility] Last Admin: 07/11/18 08:53 Dose: Not Given Lactated Ringer's (Lactated Ringers 1000 Ml Bag*) 1,000 mls @ 100 mls/hr IV PER RATE [facility] Last Admin: 07/09/18 22:09 Dose: 100 mls/hr Cefazolin Sodium 1 gm/ Sodium (Chloride) 50 mls @ 200 mls/hr IVPB Q8H [facility] Last Admin: 07/11/18 07:38 Dose: 200 mls/hr Insulin Human Lispro (Humalog*) 0 units SUBCUT AC [facility]; Protocol Last Admin: 07/11/18 12:39 Dose: 3 units Lactulose (Lactulose*) 30 ml PO Q6H PRN PRN Reason: constipation Levothyroxine Sodium (Synthroid Tab*) 75 mcg PO 0600 [facility] Last Admin: 07/11/18 05:41 Dose: 75 mcg Magnesium Hydroxide (Milk Of Magnesia Liq*) 30 ml PO BID [facility] Last Admin: 07/11/18 08:56 Dose: Not Given Magnesium Hydroxide (Milk Of Magnesia Liq*) 30 ml PO Q6H PRN PRN Reason: constipation Morphine Sulfate (Morphine Vial*) 2 mg IV Q2H PRN PRN Reason: PAIN - SEVERE Ondansetron HCl (Zofran Inj*) 4 mg IV Q6H PRN PRN Reason: nausea Last Admin: 07/11/18 12:39 Dose: 4 mg Ondansetron HCl (Zofran Odt Tab*) 4 mg PO Q6H PRN PRN Reason: NAUSEA Oxycodone HCl (Roxycodone Tab*) 10 mg PO Q4H PRN PRN Reason: moderate to severe pain Last Admin: 07/11/18 13:53 Dose: 10 mg Oxycodone/Acetaminophen (Percocet 5/325 Tab*) 1 tab PO Q3H PRN PRN Reason: PAIN - MODERATE Polyethylene Glycol/Electrolytes (Miralax*) 17 gm PO DAILY PRN PRN Reason: Constipation Sodium Chloride (Sodium Chloride 0.65% Nasal Flushing*) 1 spray BOTH NARES Q4H PRN PRN Reason: nasal dryness Tramadol HCl (Ultram*) 50 mg PO Q6H PRN PRN Reason: PAIN Last Admin: 07/11/18 07:38 Dose: 50 mg Vital Signs - 8 hr 07/11/18 07/11/18 07/11/18 09:48 11:23 13:53 Temperature 98.4 F Pulse Rate 94 Respiratory 16 16 16 Rate Blood Pressure 115/49 (mmHg) O2 Sat by Pulse 92 Oximetry Oxygen Devices in Use Now: None Result Diagrams: 07/11/18 06:22 07/11/18 06:22 Assess/Plan/Problems-Billing Assessment: - Patient Problems (1) Total knee replacement status Current Visit: Yes Status: Acute Code(s): Z96.659 - PRESENCE OF UNSPECIFIED ARTIFICIAL KNEE JOINT SNOMED Code(s): 7388787297095 Comment: #S/P TKR: -POD #2 -Encouraged pt to ask for PRN pain meds as she has plenty if she feels she needs more pain meds to be comfortable -Continue PT/OT -Defer with ortho (2) CAD (coronary artery disease) Current Visit: Yes Status: Acute Code(s): I25.10 - ATHSCL HEART DISEASE OF [place] CORONARY ARTERY W/O ANG PCTRS SNOMED Code(s): 86604669 Comment: -Continue DAPT, statins, and Diltiazem (3) Hypothyroidism Current Visit: Yes Status: Acute Code(s): E03.9 - HYPOTHYROIDISM, UNSPECIFIED SNOMED Code(s): 64331730 Comment: -Continue Levothyroxine -Will check TSH normal ; free T4 only mildly elevated likely due to post-op status -Defer F/U with PCP with repeat TFTs in 6-8 weeks (4) Nasal mucosa dry Current Visit: Yes Status: Acute Code(s): J34.89 - OTHER SPECIFIED DISORDERS OF NOSE AND NASAL SINUSES SNOMED Code(s): 19364020 Comment: -Will place pt on PRN nasal spray (5) DVT prophylaxis Current Visit: Yes Status: Acute Code(s): DAO5790 - SNOMED Code(s): 124878669 Comment: -On Apixaban Status and Disposition: -Defer with ortho
[2018-07-11] MEDS: Atorvastatin* 10 MG TAB PO SCH (20:53)
[2018-07-11] MEDS: Aspirin EC TAB* 81 MG TAB.EC PO SCH (20:53)
[2018-07-12] MEDS: Acetaminophen TAB* 325 MG PO SCH (03:34)
[2018-07-12] MEDS: oxyCODONE TAB* 5 MG TAB PO PRN ×2 (03:37→09:33)
[2018-07-12 05:55] LABS: Hematocrit 28 % (35-47); Hemoglobin 9.4 g/dl (12.0-16.0); Mean Platelet Volume 9.4 fL (7.4-10.4); Platelet Count 150 10^3/ul (150-450)
[2018-07-12] MEDS: Levothyroxine TAB* 75 MCG TAB PO SCH (06:11)
[2018-07-12 07:34] VITALS: BP 114/53
--- NOTE | 2018-07-12 07:46 | PN ---
Progress Note - Progress Note Date of Service: 07/12/18 SOAP: Subjective: POD #3 Left TKA, doing well. Anxious for d/c home today. Pain well controlled. Denies CP/SOB, n/v, f/c or calf pain Objective: Vitals: Temp Pulse Resp BP Pulse Ox 98.5 F 92 18 114/53 89 07/12/18 07:29 07/12/18 07:29 07/12/18 07:29 07/12/18 07:29 07/12/18 07:29 Gen: A&Ox3, NAD at rest laying in bed LLE: Dressing C/D/I. +f/e at ankle and MTPs, N/V intact Labs: Laboratory Results - last 24 hr 18 07/11/18 07/12/18 11:44 17:32 05:21 Hgb 9.4 L Hct 28 L Plt Count 150 MPV 9.4 POC Glucose (mg/dL) 172 H 149 H Phosphorus 07/12/18 05:21 Hgb Hct Plt Count MPV POC Glucose (mg/dL) Phosphorus 2.7 Assessment: POD #3 Left TKA Plan: D/C home today Continue eliquis 2.5mg BID for DVT ppx Continue home exercises F/U with Dr. Carlisle 10-14 days post op
[2018-07-12] MEDS: Clopidogrel TAB* 75 MG PO SCH (09:33)
[2018-07-12] MEDS: Diltiazem CD CAP* 120 MG PO SCH (09:33)
[2018-07-12] MEDS: Apixaban* 2.5 MG TAB PO SCH (09:33)
[2018-07-12] MEDS: Docusate CAP* 100 MG PO SCH (09:33)
[2018-07-12] MEDS: Magnesium Hydroxide LIQ* 30 ML UDC PO SCH (09:34)
[2018-07-12] MEDS: Insulin LISPRO* 1 UNITS UNIT SUBCUT SCH (10:02)
--- NOTE | 2018-07-12 14:33 | PN ---
Subjective Date of Service: 07/12/18 Interval History: Pt seen and examined. Meds and labs reviewed. CC: Nasal dryness ROS: Denied LEWIS/dizziness, F/C, N/V, CP, SOB, increased cough, sputum production , abd pain, diarrhea, constipation, dysuria, myalgias, arthralgias, throat pain , and new skin lesions. The rest of the 14 point ROS are unremarkable. PHYSICAL EXAM: GEN APPEARANCE: Awake, not in acute distress HEENT: NC/AT, PERRLA, moist oral mucosa, (-) throat erythema NECK: Soft, supple, (-) cervical LAD, (-)JVD HEART: S1S2 WNL, RRR, No MRG CHEST: CTA, BL, GAE, No W/R/R ABD: Soft, ND/NT, NABS 4x Q EXT: No C/C/LLE (+) knee cdi SKIN: Warm to touch PSYCH: No active psychosis, hallucinations, depression, SI/HI Objective Vital Signs - 8 hr 07/12/18 07/12/18 07/12/18 07:29 07:51 09:33 Temperature 98.5 F Pulse Rate 92 Respiratory 18 18 18 Rate Blood Pressure 114/53 (mmHg) O2 Sat by Pulse 89 Oximetry Oxygen Devices in Use Now: None Result Diagrams: 07/12/18 05:21 07/11/18 06:22 Assess/Plan/Problems-Billing Assessment: - Patient Problems (1) Total knee replacement status Status: Acute Code(s): Z96.659 - PRESENCE OF UNSPECIFIED ARTIFICIAL KNEE JOINT SNOMED Code(s): 4827701080740 Comment: #S/P TKR: -POD #3 -Encouraged pt to ask for PRN pain meds as she has plenty if she feels she needs more pain meds to be comfortable -Continue PT/OT -Defer with ortho (2) CAD (coronary artery disease) Status: Acute Code(s): I25.10 - ATHSCL HEART DISEASE OF [place] CORONARY ARTERY W/O ANG PCTRS SNOMED Code(s): 24205306 Comment: -Continue DAPT, statins, and Diltiazem (3) Hypothyroidism Status: Acute Code(s): E03.9 - HYPOTHYROIDISM, UNSPECIFIED SNOMED Code(s): 79497667 Comment: -Continue Levothyroxine -Will check TSH normal ; free T4 only mildly elevated likely due to post-op status -Defer F/U with PCP with repeat TFTs in 6-8 weeks (4) Nasal mucosa dry Status: Acute Code(s): J34.89 - OTHER SPECIFIED DISORDERS OF NOSE AND NASAL SINUSES SNOMED Code(s): 12770046 Comment: -Will place pt on PRN nasal spray (5) DVT prophylaxis Status: Acute Code(s): XDW2964 - SNOMED Code(s): 598006968 Comment: -On Apixaban Status and Disposition: -For D/C today c/o ortho -Thank you for having us participate in Ms. Mckeon care and management
--- NOTE | 2018-07-12 22:22 | DS ---
DISCHARGE SUMMARY: DATE OF ADMISSION: 07/09/18 DATE OF DISCHARGE: 07/12/18 PROVIDER: Ever Carlisle MD ADMITTING DIAGNOSIS: Severe end-stage osteoarthritis of the left knee. DISCHARGE DIAGNOSIS: Severe end-stage osteoarthritis of the left knee status post left total knee ar throplasty. SECONDARY DIAGNOSES: 1. Coronary artery disease. 2. History of myocardial infarction with cardiac catheterization in the past. 3. Hypothyroidism. 4. Hypercholesterolemia. 5. Obesity. 6. Peptic ulcer disease. 7. Hypertension. HISTORY OF PRESENT ILLNESS: Ms. Fritz is a 52-year-old female who has had ongoing pain in the left k nee for several years. She has known end-stage osteoarthritis and has failed conservative management and has elected to proceed with a total knee arthroplasty. HOSPITAL COURSE: On 07/09/18, the patient was admitted to [facility] and underwent a succ essful left total knee arthroplasty by Dr. Carlisle. She recovered briefly in the post anesthesia car e unit and was transferred to the short stay surgical unit in stable condition. She was consulted on by the hospitalist service for co-management of her diabetes and hypertension. On postop day #1, th e patient was having some difficulty controlling her pain; however, oral and IV pain medications made her more comfortable. She did not have any difficulty with ambulation with minimal assistance. She had a slight acute blood loss anemia with an H and H of 11 and 32. On postop day #2, the patient's pain was better controlled with oral pain medications. She was able to participate well with physica l therapy as well. H and H is 10.2 and 29. On postop day #3, the patient was found stable for disch arge home. H and H was stable at 9.4 and 28. The patient had no dizziness or lightheadedness throug hout her hospital course. Vital signs remained stable. She was afebrile. DISCHARGE CONDITION: Stable. DISCHARGE DISPOSITION: Home. DISCHARGE MEDICATIONS: The patient will use: 1. Eliquis 2.5 mg p.o. b.i.d. for DVT prophylaxis. 2. Percocet 5/325 mg 1 to 2 tabs p.o. q.4 to 6 hours p.r.n. pain. 3. Zofran 4 mg ODT as needed for nausea. She will resume her home medications: 1. Aspirin 81 mg daily. 2. Atorvastatin 10 mg daily. 3. Plavix 75 mg daily. 4. Vitamin E 400 units daily. 5. Vitamin B complex 1 tab daily. 6. Metformin 500 mg p.o. b.i.d. 7. Cartia 120 mg p.o. b.i.d. 8. Vitamin D supplementation 2000 units p.o. b.i.d. 9. Zocor 20 mg daily. 10. Synthroid 75 mcg daily. 11. Nitroglycerin sublingual as needed. DISCHARGE INSTRUCTIONS: The patient is weightbearing as tolerated with a rolling walker. She will k eep her incision clean and dry until postop day #3, she will then shower normally and apply a dry nithya ssing as needed. She is understanding not to submerge the incision in a bathtub, hot tub or swimming pool. She will follow up in the office [address] Carlisle. She is understand ing to call the office with any problems or concerns. She will go directly to the emergency room wit h any chest pain, shortness of breath, fever greater than 101.5, calf pain, or swelling. ALAN DU [id number]/[facility] #: [id number]
== END 2018-07-12 11:50 | disposition home or self-care (01) | DRG 302 ==
LOC: OR 05:45 → SSU 12:05
PROVIDERS: ADMIT Orthopaedic Surgery; ATTEND Student in an Organized Health Care Education/Training Program
PROC: 0SRD0J9 Replacement of Left Knee Joint with Synthetic Substitute, Cemented, Open Approach (ICD-10-PCS; principal; 2018-07-09 07:30)
DX: M17.12 Unilateral primary osteoarthritis, left knee (principal); Z68.42 Body mass index [BMI] 45.0-49.9, adult; I25.10 Atherosclerotic heart disease of native coronary artery without angina pectoris; I11.9 Hypertensive heart disease without heart failure; E11.9 Type 2 diabetes mellitus without complications; E03.9 Hypothyroidism, unspecified; N94.6 Dysmenorrhea, unspecified; K27.9 Peptic ulcer, site unspecified, unspecified as acute or chronic, without hemorrhage or perforation; M25.762 Osteophyte, left knee; E66.9 Obesity, unspecified; Z98.61 Coronary angioplasty status; Z79.84 Long term (current) use of oral hypoglycemic drugs; Z79.1 Long term (current) use of non-steroidal anti-inflammatories (NSAID); Z79.02 Long term (current) use of antithrombotics/antiplatelets; Z79.82 Long term (current) use of aspirin; Z79.899 Other long term (current) drug therapy; Z88.8 Allergy status to other drugs, medicaments and biological substances
CPT/HCPCS: 36415; 80048; 80053; 83735; 84100; 84439; 84443; 85014; 85018; 85025; 85049; A9270-GY; G8978-GP-CK; G8979-GP-CI; J0330; J0690; J1170; J1885; J2250; J2405; J2704; J2765; J3010